=== PATIENT | female | born 1980 | race Caucasian/White ===

== ENCOUNTER → 2017-06-13 | Outpatient (CLI) | payer OTHER ==
[~2017-06-13] MED LIST: BACTRIM DS TABL1 TA1 PO; FLINTSTONE VIT; KEFLEX500 MG PO; PHENERGAN PO; PHENERGAN12.5 MG DOB; ZOFRAN PO
--- NOTE | ~2017-06-13 | US6 ---
[facility] A Service of [facility] RADIOLOGY TEXT RESULTS PATIENT: KOBE SMITH LOCATION: [facility] : 82 UNIT #: [id number] AGE: [address]: Vineet Barone MD SEX: F ORDER DR: [id number] [facility] [address] [place], [place] [address] [id number] O MR#: [id number] #: [id number] NAME: KOBE SMITH : 1980 SEX: F STUDY DATE/TIME: 06/13/2017 10:15 UNIT: [facility] ROOM: STUDY DESCRIPTION: US Abdominal Limited Attending Physician: Vineet Barone M.D. Referring Physician: Vineet Barone M.D. Ordering Physician: Vineet Barone M.D. Primary Care Physician: Ceasar Kim M.D. MEDICAL IMAGING REPORT This report is preliminary unless electronic signature is present EXAM Gallbladder ultrasound, 06/13/2017. HISTORY Right upper quadrant abdominal pain for 2 years. No known injury. FINDINGS Ultrasound examination of the gallbladder is negative. There is no cholelithiasis, gallbladder wall thickening, or bile duct dilatation. The visualized liver is negative. IMPRESSION Negative gallbladder ultrasound examination. Dictated by... Chemo Lopes M.D. THIS IS AN ELECTRONICALLY VERIFIED REPORT Chemo Lopes M.D. at 06/13/2017 5:54 PM NIKHIL/paras TD: 06/13/2017 12:17 JOB #: [id number] MEDICAL IMAGING REPORT Page 1 of 1 COPY
== END | disposition home or self-care (01) ==
LOC: CGUS 09:46
DX: R10.10 Upper abdominal pain, unspecified (principal)
CPT/HCPCS: 76705